=== PATIENT | male | born 1985 | race Two or more races ===

== ENCOUNTER 2020-03-10 16:10 | Emergency (ER) | payer MEDICAID, OTHER ==
[~2020-03-10] VITALS: Ht 175.3 cm; Wt 65.8 kg
[2020-03-10] MEDS ORDERED: BACITRACIN TOP OINT 1 UD PKG TOP ONE (18:45)
[2020-03-10] MEDS ORDERED: LIDOCAINE 1% HCL (LOCAL ANESTH.) INJ 20ML MDV ID ONE (18:45)
[2020-03-10] MEDS ORDERED: TETANUS-DIPTH-ACEL PERTUSSIS 0.5ML SYR Tdap IM ONE (19:00)
[2020-03-10 19:32] VITALS: BP 133/87
== END 2020-03-10 19:32 | disposition home or self-care (01) ==
LOC: ER 16:10
DX: S51.811A Laceration without foreign body of right forearm, initial encounter (principal); Z88.0 Allergy status to penicillin; W01.198A Fall on same level from slipping, tripping and stumbling with subsequent striking against other object, initial encounter; Y93.89 Activity, other specified; Y92.89 Other specified places as the place of occurrence of the external cause; Y99.8 Other external cause status
CPT/HCPCS: 12001; 90471; 90715; 99283; J2001